=== PATIENT | male | born 1970 | race Caucasian/White ===

== ENCOUNTER → 2022-05-22 16:33 | Outpatient (CLI) | payer BC, SELFPAY ==
--- NOTE | ~2022-05-22 | XR_ITS ---
EXAM: XR knee RT min 4V DATE: 05/22/2022 16:50 HISTORY: S89.90XA - Unspecified injury of unspecified lower leg, i... . COMPARISON: 09/08/2018. FINDINGS: Normal mineralization. No fracture or dislocation. No lytic or blastic lesion. Mild medial joint space narrowing. Mild tricompartmental osteophytosis. Patellar enthesopathy. Unchanged, smooth enthesopathy/periosteal thickening on the lateral tibial cortex. Moderate volume joint fluid. No ero chyna or periosteal change. Soft tissues within normal limits. IMPRESSION: Moderate right knee joint effusion. Mild tricompartmental osteoarthritis. Patellar enthes opathy. Reviewed, dictated and finalized at location K. IMPRESSION: Moderate right knee joint effusion. Mild tricompartmental osteoarth ritis. Patellar enthesopathy.
== END ==
PROVIDERS: PCP Nurse Practitioner Family; Visit Provider Nurse Practitioner Family
DX: M17.11 Unilateral primary osteoarthritis, right knee (principal); M25.461 Effusion, right knee; M76.51 Patellar tendinitis, right knee
CPT/HCPCS: 73564

== ENCOUNTER → 2022-06-25 07:02 | Outpatient (CLI) | payer BC, SELFPAY ==
--- NOTE | ~2022-06-25 | MR_ITS ---
EXAMINATION: MR knee RT wo con DATE: 06/25/2022 07:34 INDICATION: Right knee injury. TECHNIQUE: Magnetic resonance imaging (MRI) of the right knee was performed without intravenous contr ast. Sequences included axial PD-weighted FS FSE, coronal PD-weighted FSE and PD-weighted FS FSE, sag ittal PD-weighted FSE, and sagittal T2-weighted FS FSE. COMPARISON: Right knee radiographs 05/22/2022 FINDINGS: Medial compartment: There is a complex tear involving body and posterior horn of medial meniscus. Medial compartment cart ilage is normal. Lateral compartment: Lateral meniscus is normal. There is a small area of full-thickness cartilage loss of posterior aspec t of tibial condyle. Femoral cartilage is normal. Patellofemoral compartment: There is cartilage surface irregularity of patella. Trochlear cartilage is normal. Ligaments and tendons: There is thickening of anterior cruciate ligament, likely mucoid degeneration. Posterior cruciate lig ament is normal. There is edema around medial collateral ligament, consistent with mild sprain (grade 1). There are changes of prior sprain of fibular collateral ligament characterized by increased sign al intensity proximally. There is mild patellar tendinopathy. Fluid: There is a small knee joint effusion. There is trace fluid in a Hutchinson's cyst. There is mild prepatell ar and superficial infrapatellar bursitis. IMPRESSION: 1. Complex tear of medial meniscus. 2. Mild sprain of medial collateral ligament (grade 1). 3. 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 4. Small knee joint effusion. Reviewed, dictated and finalized at location A. IMPRESSION: 1. Complex tear of medial meniscus. 2. Mild sprain of medial collateral ligament (grade 1). 3. 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 Mild kendrick llar chondrosis. 4. Small knee joint effusion.
== END ==
PROVIDERS: PCP Family Medicine; Visit Provider Nurse Practitioner Family
DX: S83.411A Sprain of medial collateral ligament of right knee, initial encounter (principal); S83.231A Complex tear of medial meniscus, current injury, right knee, initial encounter; X58.XXXA Exposure to other specified factors, initial encounter; M25.461 Effusion, right knee
CPT/HCPCS: 73721